=== PATIENT | female | born 1965 | race Caucasian/White ===

== ENCOUNTER → 2016-07-10 | Outpatient (CLI) | payer MEDICAID | LOC: MW.CHPM 13:40 | PROVIDERS: ATTEND Anesthesiology | DX: Z51.81 Encounter for therapeutic drug level monitoring (principal); Z79.891 Long term (current) use of opiate analgesic | CPT/HCPCS: 80305 ==

== ENCOUNTER 2016-08-03 11:06 | Day surgery (SDC) | payer MEDICAID ==
[2016-08-03] MEDS ORDERED: Betamethasone Acetate/Betamethasone Sod Phosphate 30 MG/5 ML MDV ONE (12:28)
[2016-08-03] MEDS ORDERED: Iopamidol 408 MG/ML 50 ML SDV ONE (12:28)
[2016-08-03] MEDS ORDERED: Ropivacaine 0.5% 5 MG/ML 30 ML SDV ONE (12:28)
[2016-08-03] MEDS ORDERED: Lidocaine 2% 5 ML SDV ONE (12:28)
--- NOTE | 2016-08-04 12:12 | OR ---
SURGEON: Carola Ashby D.O. DATE OF PROCEDURE: 08/03/2016 OR STAFF PRESENT: 1. Gemma Paulson RN. 2. Jessica Todd RN. WOUND CLASSIFICATION: I PREOPERATIVE DIAGNOSES: 1. Lumbar multilevel degenerative disk disease. 2. Lumbar spondylosis. 3. Lumbar radiculopathy. POSTOPERATIVE DIAGNOSES: 1. Lumbar multilevel degenerative disk disease. 2. Lumbar spondylosis. 3. Lumbar radiculopathy. PROCEDURES PERFORMED: 1. Caudal epidural steroid injection. 2. Fluoroscopic guidance for needle placement. 3. Local with oral Valium for sedation. SCREENING QUESTIONS: The patient answered "no" to all of the following questions: 1. Are you allergic to latex? 2. Do you have a bleeding disorder? 3. Do you have any current local or systemic infections? 4. Are you taking any anti-inflammatories or blood thinners? 5. Do you have any joint replacements, heart valve replacements, or a pacemaker? DESCRIPTION OF PROCEDURE: The patient had the procedure thoroughly explained including all possible risks, benefits and alternatives. Consent was signed in my clinic indicating understanding and willingness to proceed. The patient presented to [facility] and was escorted to the dressing room to disrobe and change into a hospital gown. Preoperative vital signs were taken and stable. The patient reported that Valium was taken prior to the procedure. The patient was brought back to the procedure room and placed in the prone position on the procedure room table. A pillow was placed under the hips in order to flatten the lumbar lordosis. The back was prepped with ChloraPrep and sterilely draped. All personnel in the operating room were dressed in appropriate attire including surgical scrubs, head and shoe covers. This was to ensure sterility while in the treatment room. During the time fluoroscopy was in use, all personnel in the operating room wore lead dennison with thyroid collars. Sterile technique was used throughout the procedure. The patient was awake and conversant throughout the procedure. There was no evidence of infection at the site of needle insertion. Skeletal landmarks were identified under fluoroscopy for the caudal epidural. Skin was anesthetized with 2% lidocaine with a sterile 27-gauge 1.5 inch needle. Then a 20-gauge Tuohy epidural needle was placed in the epidural space with loss of resistance technique under fluoroscopic guidance. No heme, cerebrospinal fluid, or paresthesias were noted. Isovue-200 contrast dye was injected in 0.2 cubic centimeter increments and seen to outline the epidural space in both AP and lateral views. There was no intravascular flow pattern observed under live fluoroscopy. Then 12 milligrams of Celestone was slowly injected after negative aspiration. The patient tolerated the procedure well. Vital signs were stable during and after the procedure. The staff escorted the patient to the recovery area and the patient was released in stable condition after a brief stay in the recovery room monitored by the nurse. The patient was given both oral and written discharge and follow up instructions with recommendation to follow up given for 2-3 weeks. The patient voiced understanding including understanding of those signs and symptoms that would require emergency care. The patient knows how to contact the office if there are any additional problems or questions in the meantime. PREOPERATIVE PAIN: 5/10. POSTOPERATIVE PAIN: 0/10. FOLLOWUP: Follow up in the Pain Clinic in 3 weeks. CARL / SHIVAM /[id number] MTDD
== END 2016-08-03 14:23 | disposition home or self-care (01) ==
LOC: MW.SDS 11:06
PROVIDERS: ATTEND Anesthesiology
PROC: 3E0R33Z Introduction of Anti-inflammatory into Spinal Canal, Percutaneous Approach (ICD-10-PCS; principal; 2016-08-03)
DX: M51.16 Intervertebral disc disorders with radiculopathy, lumbar region (principal); M47.896 Other spondylosis, lumbar region; F41.9 Anxiety disorder, unspecified; M46.98 Unspecified inflammatory spondylopathy, sacral and sacrococcygeal region; G62.9 Polyneuropathy, unspecified; M79.1 Myalgia; G89.4 Chronic pain syndrome; F17.200 Nicotine dependence, unspecified, uncomplicated; Z79.891 Long term (current) use of opiate analgesic; Z79.899 Other long term (current) drug therapy
CPT/HCPCS: 62323; J0702; J2795; Q9966

== ENCOUNTER → 2016-08-03 | Outpatient (CLI) | payer MEDICAID | LOC: MW.CHPM 09:15 | PROVIDERS: ATTEND Anesthesiology | DX: Z51.81 Encounter for therapeutic drug level monitoring (principal); Z79.891 Long term (current) use of opiate analgesic | CPT/HCPCS: 80305 ==

== ENCOUNTER 2017-10-25 10:18 | Day surgery (SDC) | payer MEDICAID ==
[2017-10-25] MEDS ORDERED: Lidocaine 2% 5 ML SDV ONE (11:23)
[2017-10-25] MEDS ORDERED: fentaNYL 100 MCG/2 ML SDV ONE (11:23)
[2017-10-25] MEDS ORDERED: Propofol 200 MG/20 ML SDV ONE ×2 (11:23→12:18)
[2017-10-25] MEDS ORDERED: Midazolam 1 MG/ML 2 ML SDV ONE (11:23)
[2017-10-25] MEDS ORDERED: Lactated Ringers 1,000 ML IV SCH (11:30)
--- NOTE | 2017-10-25 11:34 | PCM.PREANE ---
Preanesthetic Assessment - Anesthesia/Transfusion/Family Hx Anesthesia History: Prior Anesthesia Without Reaction Other Type of Anesthesia Reaction Comment: Denies any known problem in past Family History of Anesthesia Reaction: No Transfusion History: No Prior Transfusion(s) Intubation History: Unknown - Review of Systems General: No Symptoms Pulmonary: No Symptoms Cardiovascular: No Symptoms Gastrointestinal: No Symptoms Neurological: No Symptoms Other: Reports: None - Physical Assessment O2 Sat by Pulse Oximetry: 100 Respiratory Rate: 16 Vital Signs: Last Vital Signs Temp 36.3 C 10/25/17 11:10 Pulse 75 10/25/17 11:10 Resp 16 10/25/17 11:10 BP 122/71 10/25/17 11:10 Pulse Ox 100 10/25/17 11:10 Height: 1.7 m Weight: 83.007 kg ASA Class: 2 Mental Status: Alert & Oriented x3 Airway Class: Mallampati = 2 Dentition: Reports: Dentures (upper) Thyro-Mental Finger Breadths: 3 Mouth Opening Finger Breadths: 3 ROM/Head Extension: Full Lungs: Clear to Auscultation, Normal Respiratory Effort Cardiovascular: Regular Rate, Regular Rhythm - Allergies Allergies/Adverse Reactions: Allergies Allergy/AdvReac Type Severity Reaction Status Date / Time No Known Allergies Allergy Verified 10/22/17 08:32 - Blood Blood Available: No - Anesthesia Plan Pre-Op Medication Ordered: None - Acknowledgements Anesthesia Type Planned: MAC Pt an Appropriate Candidate for the Planned Anesthesia: Yes Alternatives and Risks of Anesthesia Discussed w Pt/Guardian: Yes Pt/Guardian Understands and Agrees with Anesthesia Plan: Yes PreAnesthesia Questionnaire HEENT History: Reports: Other (See Below) Other HEENT History: top denture Other Respiratory History: Reports 30 yr history of smoking, current use 1/2 pack/Day Gastrointestinal History: Reports: None Genitourinary History: Reports: None 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: Reports: Musculoskeletal History: Reports: Arthritis, Back Pain, Chronic, Fibromyalgia Other Musculoskeletal History: hx: Bilateral fractures to wrists, Chronic back pain, DDD, Fibromyalgia, Myofacial muscle pain, Chronic Pain Syndrome Neurological History: Reports: Head Trauma, Neuropathy, Peripheral, Other (See Below) (meralgia paresthetica) Psychiatric History: Reports: Anxiety Other Dermatologic History: Cellulitis Face - Past Surgical History Head Surgeries/Procedures: Reports: None GI Surgical History: Reports: Bariatric Procedure, Cholecystectomy Other GI Surgeries/Procedures: bariatric surgery, removal of gastric banding Female Surgical History: Reports: Endometrial Ablation, Tubal Ligation Other Female Surgeries/Procedures: Uterine Thermal ablation Other Musculoskeletal Surgeries/Procedures:: Lumbar radiculopathy Other Surgical History Comment: spinal cord stimulator trial - SUBSTANCE USE Tobacco Use Within Last Twelve Months: Cigarettes Recreational Drug Use History: No - HOME MEDS Home Medications: Home Meds Pregabalin [Lyrica] 1 tab PO BID 09/05/13 [History] Mupirocin Cream [Bactroban Crm] 1 applic TOP ASDIRECTED PRN 03/22/15 [History] Ibuprofen 800 mg PO ASDIRECTED PRN 10/22/17 [History] - CURRENT (IN HOUSE) MEDS Current Meds: Current Medications Lactated Ringer's (Ringers, Lactated) 1,000 mls @ 125 mls/hr IV ASDIRECTED NORMA Discontinued Medications Fentanyl (Sublimaze) Confirm Administered Dose 100 mcg .ROUTE .STK-MED ONE Stop: 10/25/17 11:24 Lidocaine (Xylocaine-Mpf 2%) Confirm Administered Dose 10 ml .ROUTE .STK-MED ONE Stop: 10/25/17 11:24 Midazolam HCl (Versed 1 Mg/Ml) Confirm Administered Dose 2 mg .ROUTE .STK-MED ONE Stop: 10/25/17 11:24 Propofol (Diprivan 20 Ml) Confirm Administered Dose 400 mg .ROUTE .STK-MED ONE Stop: 10/25/17 11:24
--- NOTE | 2017-10-25 13:05 | PCM.OPNOTE ---
- General Post-Op/Procedure Note Date of Surgery/Procedure: 10/25/17 Operative Procedure(s): Colonoscopy Findings: Poor prep with liquid stool and vegetable matter in colon. 2 ascending colon polyps, 1 hepatic flexure polyp, and 1 transverse colon polyp Pre Op Diagnosis: Colonoscopy Post-Op Diagnosis: 2 ascending colon polyps, 1 hepatic flexure polyp, and 1 transverse colon polyp Anesthesia Technique: MAC Primary Surgeon: Radha Damon Condition: Good
--- NOTE | 2017-10-25 13:36 | PCM.POSTAN ---
POST ANESTHESIA ASSESSMENT - MENTAL STATUS Mental Status: Alert, Oriented - RESPIRATORY Respiratory Status: Respiratory Rate WNL, Airway Patent, O2 Saturation Stable - CARDIOVASCULAR CV Status: Pulse Rate WNL, Blood Pressure Stable - GASTROINTESTINAL GI Status: No Symptoms - POST OP HYDRATION Hydration Status: Adequate & Stable
[2017-10-25 13:43] VITALS: BP 101/52
--- NOTE | 2017-10-25 13:52 | PCM48HPAN ---
Post Anesthesia Note - EVALUATION WITHIN 48HRS OF ANESTHETIC Vital Signs in Normal Range: Yes Patient Participated in Evaluation: Yes Respiratory Function Stable: Yes Airway Patent: Yes Cardiovascular Function Stable: Yes Hydration Status Stable: Yes Pain Control Satisfactory: Yes Nausea and Vomiting Control Satisfactory: Yes Mental Status Recovered: Yes Resp Rate: 12
--- NOTE | 2017-10-25 19:41 | OR ---
SURGEON: TATE SANDOVAL MD DATE OF PROCEDURE: 10/25/2017 PREOPERATIVE DIAGNOSIS: Screening colonoscopy. POSTOPERATIVE DIAGNOSES: Ascending colon polyp x2, hepatic flexure polyp x1, transverse colon polyp x1. PROCEDURE PERFORMED: Screening colonoscopy. ANESTHESIA: MAC. INSTRUMENT USED: Olympus colonoscope. EXTENT OF EXAM: To the cecum. PREPARATION: Poor. LIMITATIONS: Poor prep. INDICATIONS: The patient is a 51-year-old female, who presents for first time screening colonoscopy. We discussed the procedure, expected perioperative course, and risks including bleeding, infection, or damage to surrounding structures including perforation. The patient verbalized understanding and wishes to proceed. PROCEDURE IN DETAIL: The patient was brought to the endoscopy suite and placed in the left lateral decubitus position. A time-out was completed verifying the patient's name, age, date of , allergies, and procedure to be performed. Monitored anesthesia care was induced and continuous oxygen was provided via nasal cannula throughout the procedure. After adequate sedation was achieved, a digital rectal exam was performed. This exam was within normal limits. A well lubricated colonoscope was inserted into the rectum and advanced under direct visualization to the level of cecum. This was done with some difficulty, given that the patient had a large amount of liquid stool in the colon containing solid components. The cecum was identified by both visual and anatomic landmarks. A photograph was taken of cecal cap as well as with the scope retroflexed within the cecum. Scope was then fully withdrawn while examining the color, texture, anatomy, and integrity of the mucosa from the cecum to the anal canal. The patient was found to have two ascending colon polyps, one is hepatic flexure polyp and one transverse colon polyp. These were all removed in a piecemeal fashion using a cold biopsy forceps. I was unable to identify any other smaller polyps as it came out, however, my exam was limited by the poor prep despite a large amount of irrigation. The scope was then brought into the rectum and retroflexed to allow visualization of the anal canal opening. This appeared normal and a photograph was taken. The scope was then straightened out and fully withdrawn. The cecum to anus time was greater than 20 minutes, given the large amount of irrigation it took in order to perform this safely. The patient was transferred to the PACU in stable condition. ENDOSCOPIC DIAGNOSES: Ascending colon polyp x2, hepatic flexure polyp x1, transverse colon polyp x1. RECOMMENDATIONS: Follow up in clinic in 2 weeks. LEMRONH / MODL /[id number]
== END 2017-10-25 13:50 | disposition home or self-care (01) ==
LOC: MW.SDS 10:18
PROVIDERS: ATTEND Surgery
DX: Z12.11 Encounter for screening for malignant neoplasm of colon (principal); D12.2 Benign neoplasm of ascending colon; D12.3 Benign neoplasm of transverse colon; M19.90 Unspecified osteoarthritis, unspecified site; M54.16 Radiculopathy, lumbar region; G62.9 Polyneuropathy, unspecified; F17.210 Nicotine dependence, cigarettes, uncomplicated; F41.9 Anxiety disorder, unspecified; Z79.899 Other long term (current) drug therapy
CPT/HCPCS: 45380; J2250; J3010; 00811; J2704

== ENCOUNTER 2020-06-09 20:05 | Emergency (ER) | payer OTHER ==
[2020-06-09] MEDS ORDERED: Ketorolac 60 MG/2 ML SDV IM ONE (20:08)
--- NOTE | 2020-06-09 20:14 | EDM.PDOC ---
ED HPI GENERAL MEDICAL PROBLEM <Geoffrey Alvarado - Last Filed: 06/10/20 03:54> - General Source of Information: Reports: Patient History Limitations: Reports: No Limitations heada area Pain Score (Numeric/FACES): 8 <Min Marie - Last Filed: 06/10/20 09:55> - General Chief Complaint: Trauma Stated Complaint: EMS ARRIVAL Time Seen by Provider: 06/09/20 20:07 - History of Present Illness INITIAL COMMENTS - FREE TEXT/NARRATIVE: Patient was signed out to me by Monica Marie PHYSICIAN ADVISOR pending CT of her hip at 7PM I did reevaluate the patient and patient was stable and stated her pain had improved. She was initially brought in by ambulance from the local shelter after she had a fall with neck and thoracic/lumbar back pain. Otherwise she had no other complaints. Imaging reviewed which did reveal a negative CT head, negative CT C-spine, negative CT thoracic and lumbar spine for any fracture. Chest x-ray was unremarkable. Hip x-ray did show a questionable linear lucency at the left femoral headneck junction. I cannot rule out fracture. The radiological images were viewed by myself along with reading the report from the radiologist. CT of the hip does not reveal any evidence of fracture. Lucency questioned on plain film likely represents soft tissue artifact. After imaging I discussed the results with the patient. I discussed with her at this time that she be stable for discharge. She was cleared by the shelter to go home. I discussed with her that she should use Tylenol and Motrin for pain relief and to use ice to the affected areas 20 minutes 4 times a day. Discussed that if she were to have any new or worsening symptoms she should return to the emergency department. She was amenable to discharge at this time and had no further questions DISPOSITION: The patient was discharged home in stable condition. The patient will follow up with PCP as needed CONDITION: Fair PROCEDURES: None FINAL IMPRESSION(S)/DIAGNOSES: 1. Acute mechanical fall 2. Acute back pain likely musculoskeletal Geoffrey Alvarado M.D. (Geoffrey Alvarado) HISTORY AND PHYSICAL: History of present illness: Patient is a 54-year-old female who presents to the emergency room by ambulance from the local shelter with neck, and thoracic/lumbar back pain. Patient was on the top bunk which is approximately 6-7 feet from the ground, rolled off and landed on her back. Patient states she does not believe she had any loss of consciousness. She has generalized back pain and left hip pain. Patient denies any fever, chills, headache, change in vision, syncope or near syncope. Denies any chest pain, shortness of breath or cough. Denies any abdominal pain, nausea, vomiting, diarrhea, constipation or dysuria. Has not noted any blood in urine or stool. Patient has been eating and drinking appropriately. Review of systems: As per history of present illness and below otherwise all systems reviewed and negative. Past medical history: As per history of present illness and as reviewed below otherwise noncontributory. Surgical history: As per history of present illness and as reviewed below otherwise noncontributory. Social history: See social history for further information Family history: As per history of present illness and as reviewed below otherwise noncon tributory. Physical exam: General: Well developed and well nourished. Alert and orientated x 3. Nontoxic in appearance and in no acute distress. Vital signs are stable and have been reviewed by me. Nursing notes were reviewed. HEENT: Atraumatic, normocephalic, pupils equal and reactive bilaterally, negative for conjunctival pallor or scleral icterus, mucous membranes moist, TMs normal bilaterally, throat clear, neck supple, nontender, trachea midline. No drooling or trismus noted. No meningeal signs. No hot potato voice noted. Lungs: Clear to auscultation bilaterally. No wheezes, rales, or rhonchi. Chest nontender. Normal work of breathing, no accessory muscles used. Heart: S1S2, regular rate and rhythm without overt murmur, gallops, or rubs. No JVD. No peripheral edema Abdomen: Soft, nondistended, nontender. Normoactive bowel sounds. Negative for masses or costovertebral tenderness. Pelvis: Stable nontender. Genitourinary/Rectal: Good rectal tone. No Hemoccult stool noted. C-spine/Back: C-collar on HOSPITAL COOK. Generalized vertebral tenderness upon palpation from cervical to lumbar spine. No crepitus, step-offs or obvious deformities. Denies any urinary or fecal incontinence. Denies any numbness, tingling or saddle paresthesia. No concerns of serious infection, fracture or cord compression, or cauda equina syndrome. Deep tendon reflexes brisk bilaterally. Skin: Healing abrasion to left glute. Remaining skin is intact, warm, dry. No lesions or rashes noted. Hematologic: No petechiae or purpra. Mucosa appropriate color and normal nail bed color and refill. Extremities: Moves all extremities per self without deficits. Pain with palpation of left hip. Pelvis is stable. Extremities equal bilaterally, + distal pulses. She is negative for cords or calf pain. SEE C-SPINE/BACK. Neurovascular unremarkable. Neuro: Awake, alert, oriented. Cranial nerves II through XII unremarkable. Cerebellum unremarkable. Motor and sensory unremarkable throughout. Exam nonfocal. Psychiatric: Mood and affect are appropriate. Normal thought process. Answering questions appropriately. Notes: *This patient was seen and evaluated during the 2019 SARS-CoV-2 novel coronavirus pandemic period. Community viral transmission is ongoing at time of this encounter and the emergency department is operating under pandemic response procedures. Negative Head and C-spine CT. MINIMAL DEGENERATIVE DISC DISEASE OF THE THORACIC SPINE WITHOUT EVIDENCE OF FRACTURE. Lumbar spine x-ray shows no evidence of fracture. CXR is unremarkable. Hip x-ray shows a questionable linear lucency at the left femoral head-neck junction. Nondisplaced subcapital femoral fracture is not excluded. Follow-up CT or MRI is recommended. Diagnostics: Head CT, Cervical/Thoracic/Lumbar CT, Left hip and Pelvis X-ray, CXR Therapeutics: Toradol IM Prescription: None Impression: Fall Back pain Encounter for medical screening exam Plan: 1. Your x-rays/CT scans are all within normal limits. You will likely be sore over the next few days, so please take it easy. Rest and ice as able. 2. You can alternate Tylenol and ibuprofen as needed for pain and fever management. 3. We encourage you to follow up with your primary care provider and/or recommended specialist in the next few days for re-evaluation and further care/management. 4. If your symptoms should worsen, new symptoms develop or any of the signs and symptoms we discussed should arise please return to the emergency room or call 911 (if needed). Definitive disposition and diagnosis as appropriate pending reevaluation and review of above. (Min Marie) - Related Data Allergies Allergy/AdvReac Type Severity Reaction Status Date / Time No Known Allergies Allergy Verified 06/09/20 22:14 Home Meds: Home Meds Pregabalin [Lyrica] 1 tab PO BID 09/05/13 [History] Mupirocin Cream [Bactroban Crm] 1 applic TOP ASDIRECTED PRN 03/22/15 [History] Ibuprofen 800 mg PO ASDIRECTED PRN 10/22/17 [History] Past Medical History HEENT History: Reports: Other (See Below) Other HEENT History: top denture Other Respiratory History: Reports 30 yr history of smoking, current use 1/2 pack/Day Gastrointestinal History: Reports: None Genitourinary History: Reports: None 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: Musculoskeletal History: Reports: Arthritis, Back Pain, Chronic, Fibromyalgia Other Musculoskeletal History: hx: Bilateral fractures to wrists, Chronic back pain, DDD, Fibromyalgia, Myofacial muscle pain, Chronic Pain Syndrome Neurological History: Reports: Head Trauma, Neuropathy, Peripheral, Other (See Below) (meralgia paresthetica) Psychiatric History: Reports: Anxiety Other Dermatologic History: Cellulitis Face - Past Surgical History Head Surgeries/Procedures: Reports: None GI Surgical History: Reports: Bariatric Procedure, Cholecystectomy Other GI Surgeries/Procedures: bariatric surgery, removal of gastric banding Female Surgical History: Reports: Endometrial Ablation, Tubal Ligation Other Female Surgeries/Procedures: Uterine Thermal ablation Other Musculoskeletal Surgeries/Procedures:: Lumbar radiculopathy Other Surgical History Comment: spinal cord stimulator trial <Min Marie E - Last Filed: 06/10/20 09:55> Review of Systems - Review of Systems Review Of Systems: Comprehensive ROS is negative, except as noted in HPI. <Min Marie E - Last Filed: 06/10/20 09:55> ED EXAM, GENERAL - Physical Exam Exam: See Below (See dictation) <Min Marie E - Last Filed: 06/10/20 09:55> Course - Vital Signs Last Recorded V/S: Last Vital Signs Temp 97.2 F 06/10/20 00:00 Pulse 79 06/10/20 00:00 Resp 18 06/10/20 00:00 BP 120/69 06/10/20 00:00 Pulse Ox 97 06/10/20 00:00 - Orders/Labs/Meds Meds: Medications Discontinued Medications Generic Name Dose Route Start Last Admin Trade Name Freq PRN Reason Stop Dose Admin Ketorolac Tromethamine 60 mg 06/09/20 20:08 06/09/20 21:31 Toradol IM 06/09/20 20:09 60 mg ONETIME ONE Administration Departure - Departure Time of Disposition: 00:00 <Geoffrey Alvarado - Last Filed: 06/10/20 03:54> <Min Marie - Last Filed: 06/10/20 09:55> - Departure Disposition: Home, Self-Care 01 Clinical Impression: Encounter for medical screening examination Fall Qualifiers: Encounter type: initial encounter Qualified Code(s): W19.XXXA - Unspecified fall, initial encounter Back pain Qualifiers: Back pain location: back pain in unspecified location Chronicity: acute Back pain laterality: bilateral Qualified Code(s): M54.9 - Dorsalgia, unspecified - Discharge Information Instructions: Acute Back Pain, Adult Referrals: PCP,None [Primary Care Provider] - Forms: ED Department Discharge Additional Instructions: The following information is given to patients seen in the emergency department who are being discharged to home. This information is to outline your options for follow-up care. We provide all patients seen in our emergency department with a follow-up referral. The need for follow-up, as well as the timing and circumstances, are variable depending upon the specifics of your emergency department visit. If you don't have a primary care physician on staff, we will provide you with a referral. We always advise you to contact your personal physician following an emergency department visit to inform them of the circumstance of the visit and for follow-up with them and/or the need for any referrals to a consulting specialist. The emergency department will also refer you to a specialist when appropriate. This referral assures that you have the opportunity for follow-up care with a specialist. All of these measure are taken in an effort to provide you with opt imal care, which includes your follow-up. Under all circumstances we always encourage you to contact your private physician who remains a resource for coordinating your care. When calling for follow-up care, please make the office aware that this follow-up is from your recent emergency room visit. If for any reason you are refused follow-up, please contact the [facility] Emergency Department at and asked to speak to the emergency department charge nurse. [facility] [address] [place] [address] [facility] [address] [place] [address] Thank you for choosing the [facility] emergency department in [place] for your medical needs today. It was a pleasure caring for you. Today you were seen in the emergency department for back pain related to fall. 1. Your x-rays/CT scans are all within normal limits. You will likely be sore over the next few days, so please take it easy. Rest and ice as able. 2. You can alternate Tylenol and ibuprofen as needed for pain and fever management. 3. We encourage you to follow up with your primary care provider and/or recommended specialist in the next few days for re-evaluation and further care/management. 4. If your symptoms should worsen, new symptoms develop or any of the signs and symptoms we discussed should arise please return to the emergency room or call 911 (if needed). Sepsis Event Note (ED) - Focused Exam Vital Signs: Vital Signs Temp Pulse Resp BP Pulse Ox 06/10/20 00:00 97.2 F 79 18 120/69 97
--- NOTE | 2020-06-09 21:21 | CT ---
INDICATION: Fall, pain TECHNIQUE: CT head without contrast. COMPARISON: None. FINDINGS: CSF spaces: Within normal limits for age. Brain parenchyma: The gracia-white differentiation is normal. No sign of mass, hemorrhage, or midline shift. Skull base and calvarium: The visualized paranasal sinuses and mastoid air cells demonstrate no acute or significant findings. The visualized orbits are grossly unremarkable. No skull fractures. IMPRESSION: Unremarkable noncontrast head CT. Please note that all CT scans at this facility use dose modulation, iterative reconstruction, and/or weight-based dosing when appropriate to reduce radiation dose to as low as reasonably achievable. Dictated by Calderon Lopez MD @ Jun 09 2020 9:16PM Signed by Dr. Calderon Lopez @ Jun 09 2020 9:20PM
--- NOTE | 2020-06-09 21:26 | CT ---
INDICATION: Fall, pain TECHNIQUE: CT cervical spine without contrast. COMPARISON: None FINDINGS: Vertebrae: Alignment is normal. There are no fractures or suspicious bony lesions. Discs and facet joints: Small anterior osteophytes C4-5 without significant stenosis. Disc space narrows posterior osteophytes at C5-6 causing mild bilateral foraminal stenosis. Disc space narrowing and posterior osteophyte at C6-7 a mild facet hypertrophy causing moderate right and mild left foraminal stenosis. Facet hypertrophy C7-T1 without significant stenosis. Extraspinal findings: Prevertebral soft tissues, visualized airway, and visualized lungs are unremarkable. IMPRESSION: Multilevel degenerative disc disease cervical spine without evidence of cervical spine fracture. Please note that all CT scans at this facility use dose modulation, iterative reconstruction, and/or weight-based dosing when appropriate to reduce radiation dose to as low as reasonably achievable. Dictated by Calderon Lopez MD @ Jun 09 2020 9:16PM Signed by Dr. Calderon Lopez @ Jun 09 2020 9:24PM
--- NOTE | 2020-06-09 21:28 | CT ---
INDICATION: Fall, pain TECHNIQUE: CT thoracic spine without contrast. COMPARISON: None FINDINGS: Vertebral alignment: Alignment is normal. Vertebrae: There are no fractures or suspicious bony lesions. Discs and facet joints: Minimal thoracic osteophytes without significant central spinal canal stenosis. Extraspinal findings: Apical bulla, greater in the right lung. IMPRESSION: Minimal degenerative disc disease thoracic spine without evidence of thoracic spine fracture. Please note that all CT scans at this facility use dose modulation, iterative reconstruction, and/or weight-based dosing when appropriate to reduce radiation dose to as low as reasonably achievable. Dictated by Calderon Lopez MD @ Jun 09 2020 9:16PM Signed by Dr. Calderon Lopez @ Jun 09 2020 9:27PM
--- NOTE | 2020-06-09 21:34 | CT ---
INDICATION: Fall, pain TECHNIQUE: CT lumbar spine without contrast. COMPARISON: None FINDINGS: Vertebrae: Mild rightward curvature lower lumbar spine. There are no fractures or suspicious bony lesions. Discs and facet joints: Anterior osteophytes L1-2 with minimal annular prominence without significant stenosis. Broad annular bulge with small osteophytes at the L2-3 level contributing to mild right foraminal stenosis. Disc space narrowing with facet hypertrophy and broad-based annular bulge the L3-4 level causing moderate bilateral foraminal stenosis and mild central spinal canal stenosis. Disc space narrowing with broad-based annular bulge, facet and ligamentum flavum hypertrophy and posterior osteophytes at L4-5 causing moderate bilateral foraminal stenosis. Prominent facet hypertrophy with broad-based annular bulge L5-S1 and posterior osteophytes causing moderate bilateral foraminal stenosis. Extraspinal findings: Atherosclerosis. Status post cholecystectomy. IMPRESSION: 1. No evidence of lumbar spine fracture. 2. Multilevel degenerative disc disease lumbar spine as detailed level by level above. Please note that all CT scans at this facility use dose modulation, iterative reconstruction, and/or weight-based dosing when appropriate to reduce radiation dose to as low as reasonably achievable. Dictated by Calderon Lopez MD @ Jun 09 2020 9:17PM Signed by Dr. Calderon Lopez @ Jun 09 2020 9:32PM
--- NOTE | 2020-06-09 21:42 | CR ---
INDICATION: Fell off the top bunk. Pain and tenderness. TECHNIQUE: AP portable chest x-ray. FINDINGS: Heart size normal. Lungs clear without infiltrate or consolidation. No definite rib fractures. Degenerative changes in the shoulders. Chest otherwise unremarkable. Dictated by Jah Mcghee MD @ Jun 09 2020 9:39PM Signed by Dr. Jah Mcghee @ Jun 09 2020 9:42PM
--- NOTE | 2020-06-09 21:50 | CR ---
Indication: Fell off top bunk, pain and tenderness Technique: Supine AP view of the pelvis and 2 views of the left hip. Comparison: Pelvis radiographs 11/05/2017 Findings: The pelvic ring appears intact. The femoroacetabular joints are normally located. Questionable linear lucency is suggested it through the left femoral head-neck junction. The surrounding soft tissues are unremarkable. Impression : Questionable linear lucency at the left femoral head-neck junction. Nondisplaced subcapital femoral fracture is not excluded. Follow-up CT or MRI is recommended. Dictated by Ambar Rodgers MD @ Jun 09 2020 9:44PM Signed by Dr. Ambar Rodgers @ Jun 09 2020 9:49PM
--- NOTE | 2020-06-09 23:25 | CT ---
Indication: Hip pain after fall, possible fracture. Technique: Noncontrast axial images were obtained through the left hip with coronal and sagittal reformatted images performed in the scanner. Comparison: Left hip series 06/09/2020 Findings: Osseous structures: No evidence of fracture. Specifically, the subcapital region of the left proximal femur is unremarkable. Joint space: No evidence of dislocation or significant joint space narrowing. Soft tissues: Atherosclerotic calcification present. Impression: Unremarkable CT left hip. No evidence of fracture. Lucency questioned on plain film likely represents soft tissue artifact. Please note that all CT scans at this facility use dose modulation, iterative reconstruction, and/or weight-based dosing when appropriate to reduce radiation dose to as low as reasonably achievable. Dictated by Calderon Lopez MD @ Jun 09 2020 11:19PM Signed by Dr. Calderon Lopez @ Jun 09 2020 11:23PM
[2020-06-10 02:43] VITALS: BP 120/69; PULSE 79
== END 2020-06-10 00:10 | disposition home or self-care (01) ==
LOC: MW.ED 20:05
DX: M54.6 Pain in thoracic spine (principal); M54.5 Low back pain; M54.2 Cervicalgia
CPT/HCPCS: 70450; 71045; 72125; 72128; 72131; 73502; 73700; 96372; 99284; J1885; 99283

== ENCOUNTER 2022-01-16 11:59 | Emergency (ER) | payer MEDICAID ==
[2022-01-16] MEDS ORDERED: Dexamethasone 10 MG/ML SDV IM STA (12:33)
[2022-01-16] MEDS ORDERED: Acetaminophen/oxyCODONE 325-10 MG Tab PO STA (12:34)
[2022-01-16] MEDS ORDERED: Cyclobenzaprine 10 MG Tab PO STA (12:34)
[2022-01-16 14:21] VITALS: BP 110/70; PULSE 83
== END 2022-01-16 14:20 | disposition home or self-care (01) ==
LOC: MW.ED 11:59
DX: M54.42 Lumbago with sciatica, left side (principal); Z79.899 Other long term (current) drug therapy; Z90.49 Acquired absence of other specified parts of digestive tract
CPT/HCPCS: 96372; 99283; A9270; J1100